=== PATIENT | female | born 1970 | race Caucasian/White ===

== ENCOUNTER 2020-04-17 07:13 | Outpatient (REF) | payer OTHER, SELFPAY ==
[2020-04-17 07:56] LABS: MANUAL DIFF FLAG NO
[2020-04-17 07:58] LABS: Basophils Percent Auto 0.6 % (0-2); Eosinophils Absolute Auto 0.3 X10*3/uL (0.0-0.4); Hematocrit 43.9 % (37-47); Hemoglobin 14.5 g/dl (12.0-16.0); Imm Gran Abs Auto 0.02 X10*3/uL (0.00-0.03); Imm Gran Pct Auto 0.3 % (0.0-0.4); Lymphocytes Absolute Auto 2.9 X10*3/uL (1.2-4.9); Lymphocytes Percent Auto 44.6 % (20-40); Mean Corpuscular Hemoglobin 29.5 pg (27.0-33.0); Mean Corpuscular Volume 89.4 fL (80-98); Mean Platelet Volume 9.6 fL (9.4-12.3); Monocytes Absolute Auto 0.6 X10*3/uL (0.1-1.2); Neutrophils Absolute Auto 2.5 X10*3/uL (2.0-8.3); Neutrophils Percent Auto 39.5 % (45-73); Platelet Count 367 X10*3/uL (160-400); Red Blood Count 4.91 X10*6/uL (4.20-5.50); Red Cell Distribution Width 12.2 % (11.0-16.0); White Blood Count 6.4 X10*3/uL (4.8-10.8)
[2020-04-17 08:05] LABS: Glucose Urine UA NEG (NEG); Leukocyte Esterase Urine 3+ (NEG); Nitrite Urine NEG (NEG); Specific Gravity - Urine 1.015 (1.005-1.025); Urine Blood NEG (NEG); Urine Ketones NEG (NEG); Urine Protein NEG (NEG-TRACE)
[2020-04-17 08:11] LABS: Appearance Urine HAZY; Color Urine YELLOW
[2020-04-17 08:18] LABS: Bacteria Urine 1+ /LPF; Mucus Urine 2+ /LPF; RBC Urine 0 /HPF (0); Squamous Epithelial Cell Urine 3+ /LPF
[2020-04-17 08:22] LABS: Alanine Aminotransferase 20 U/L (0-31); Albumin Level 4.8 g/dL (3.5-5.0); Alkaline Phosphatase 66 U/L (39-117); Anion Gap 13 (12-20); Aspartate Amino Transferase 35 U/L (5-31); Bilirubin Total 1.1 mg/dL (0.0-1.0); Blood Urea Nitrogen 13 mg/dL (9-16); Calcium 9.9 mg/dL (8.4-10.2); Carbon Dioxide 28 mmol/L (22-29); Chloride 100 mmol/L (96-108); Cholesterol 273 mg/dL; Estimated Glomerular Filt Rate > 60; Glucose Random 104 mg/dL (60-115); HDL Cholesterol 48 mg/dL; LDL Cholesterol Calculated 170 mg/dl; Potassium 4.7 mmol/l (3.3-5.1); Sodium 136 mmol/L (135-145); Total Protein 7.7 g/dL (6.5-8.0); Triglycerides 275 mg/dL
[2020-04-17 08:43] LABS: Free T4 (Free Thyroxine) 0.99 ng/dL (0.71-1.85); Thyroid Stimulating Hormone 2.56 mIU/mL (0.32-4.0)
[2020-04-17 10:33] LABS: Folate > 20.0 ng/mL (> or = 4.0); Vitamin B12 412 pg/mL (200-900)
== END 2020-04-17 07:14 | disposition home or self-care (01) ==
LOC: HO.LAB 07:13
PROVIDERS: Visit Provider Internal Medicine
DX: E78.00 Pure hypercholesterolemia, unspecified (principal); I10 Essential (primary) hypertension
CPT/HCPCS: 36415; 80053; 80061; 81001; 82607; 82746; 84439; 84443; 85025

== ENCOUNTER 2020-07-20 06:18 | Outpatient (REF) | payer OTHER, SELFPAY ==
[2020-07-20 07:23] LABS: Appearance Urine HAZY; Color Urine YELLOW; Glucose Urine UA NEG (NEG); Leukocyte Esterase Urine 1+ (NEG); Nitrite Urine NEG (NEG); Urine Blood NEG (NEG); Urine Ketones NEG (NEG); Urine Protein NEG (NEG-TRACE)
[2020-07-20 07:41] LABS: RBC Urine 0-2 /HPF (0)
[2020-07-20 07:42] LABS: Bacteria Urine TRACE /LPF; Squamous Epithelial Cell Urine 1+ /LPF
[2020-07-20 07:43] LABS: Alanine Aminotransferase 15 U/L (0-31); Albumin Level 4.8 g/dL (3.5-5.0); Alkaline Phosphatase 57 U/L (39-117); Anion Gap 15 (12-20); Aspartate Amino Transferase 24 U/L (5-31); Bilirubin Total 0.8 mg/dL (0.0-1.0); Blood Urea Nitrogen 12 mg/dL (9-16); Carbon Dioxide 25 mmol/L (22-29); Chloride 102 mmol/L (96-108); Cholesterol 276 mg/dL; Estimated Glomerular Filt Rate > 60; Glucose Random 99 mg/dL (60-115); HDL Cholesterol 52 mg/dL; LDL Cholesterol Calculated 182 mg/dl; Potassium 4.4 mmol/L (3.3-5.1); Sodium 138 mmol/L (135-145); Total Protein 7.7 g/dL (6.5-8.0); Triglycerides 212 mg/dL
== END 2020-07-20 06:19 | disposition home or self-care (01) ==
LOC: HO.LAB 06:18
PROVIDERS: Visit Provider Internal Medicine
DX: R73.01 Impaired fasting glucose (principal); E78.00 Pure hypercholesterolemia, unspecified
CPT/HCPCS: 36415; 80053; 80061; 81001

== ENCOUNTER 2020-08-21 15:52 | Outpatient (REF) | payer OTHER, SELFPAY ==
--- NOTE | ~2020-08-21 | US_ITS ---
EXAMINATION: US RETROPERITONEAL LIMITED (RENAL ONLY) CLINICAL INFORMATION: Hematuria. COMPARISON: None TECHNIQUE: Real-time imaging of the kidneys. FINDINGS: RIGHT KIDNEY: 10.9 x 5.1 x 5.2 cm (SAG x AP x TRV). The kidney is normal in size, contour, and echogenicity. Renal cortical thickness is normal. No calculi or focal parenchymal lesions. No hydronephrosis. An extrarenal kidney pelvis is seen. LEFT KIDNEY: 10.7 x 5.0 x 4.9 cm (SAG x AP x TRV). The kidney is normal in size, contour, and echogenicity. Renal cortical thickness is normal. No calculi or focal parenchymal lesions. No hydronephrosis. US/US renal BI IMPRESSION: Unremarkable renal ultrasound.
== END 2020-08-21 15:53 | disposition home or self-care (01) ==
LOC: HO.US 15:52
PROVIDERS: Visit Provider Internal Medicine
DX: R31.9 Hematuria, unspecified (principal)
CPT/HCPCS: 76775

== ENCOUNTER 2020-11-14 06:00 | Outpatient (REF) | payer OTHER, SELFPAY ==
[2020-11-14 07:25] LABS: Alanine Aminotransferase 16 U/L (0-31); Albumin Level 4.7 g/dL (3.5-5.0); Alkaline Phosphatase 60 U/L (39-117); Anion Gap 13 (12-20); Aspartate Amino Transferase 24 U/L (5-31); Bilirubin Total 0.9 mg/dL (0.0-1.0); Blood Urea Nitrogen 12 mg/dL (9-16); Carbon Dioxide 27 mmol/L (22-29); Chloride 104 mmol/L (96-108); Cholesterol 192 mg/dL; Estimated Glomerular Filt Rate > 60; Glucose Random 94 mg/dL (60-115); HDL Cholesterol 51 mg/dL; LDL Cholesterol Calculated 112 mg/dl; Potassium 4.5 mmol/L (3.3-5.1); Sodium 139 mmol/L (135-145); Total Protein 7.2 g/dL (6.5-8.0); Triglycerides 148 mg/dL
[2020-11-14 07:36] LABS: Estimated Average Glucose 114 mg/dL; Hemoglobin A1c % 5.6 %
[2020-11-14 07:42] LABS: Glucose Urine UA NEG (NEG); Leukocyte Esterase Urine NEG (NEG); Nitrite Urine NEG (NEG); Specific Gravity - Urine 1.015 (1.005-1.025); Urine Blood NEG (NEG); Urine Ketones NEG (NEG); Urine Protein NEG (NEG-TRACE)
[2020-11-14 07:46] LABS: Appearance Urine HAZY; Color Urine YELLOW
[2020-11-14 07:49] LABS: Bacteria Urine 1+ /LPF; RBC Urine 0-2 /HPF (0); Squamous Epithelial Cell Urine 3+ /LPF; WBC Urine 0-2 /HPF (0-4)
== END 2020-11-14 06:01 | disposition home or self-care (01) ==
LOC: HO.LAB 06:00
PROVIDERS: PCP Internal Medicine; Visit Provider Internal Medicine
DX: E78.00 Pure hypercholesterolemia, unspecified (principal); R73.01 Impaired fasting glucose
CPT/HCPCS: 36415; 80053; 80061; 81001; 83036

== ENCOUNTER 2021-12-10 06:13 | Outpatient (REF) | payer OTHER, SELFPAY ==
[2021-12-10 06:24] LABS: MANUAL DIFF FLAG NO
[2021-12-10 07:46] LABS: Basophils Absolute Auto 0.1 X10*3/uL (0.0-0.2); Basophils Percent Auto 0.6 % (0-2); Eosinophils Absolute Auto 0.4 X10*3/uL (0.0-0.4); Eosinophils Percent Auto 4.3 % (0-4); Hematocrit 42.4 % (37.0-47.0); Hemoglobin 14.2 g/dl (12.0-16.0); Imm Gran Abs Auto 0.05 X10*3/uL (0.00-0.03); Imm Gran Pct Auto 0.6 % (0.0-0.4); Lymphocytes Absolute Auto 3.6 X10*3/uL (1.2-4.9); Mean Corpuscular HGB Conc 33.5 g/dl (31.0-35.0); Mean Corpuscular Hemoglobin 29.5 pg (27.0-33.0); Mean Corpuscular Volume 88.1 fL (80.0-98.0); Mean Platelet Volume 10.3 fL (9.4-12.3); Monocytes Absolute Auto 0.8 X10*3/uL (0.1-1.2); Neutrophils Absolute Auto 3.7 x10*3/uL (2.0-8.3); Neutrophils Percent Auto 43.5 % (45-73); Platelet Count 365 X10*3/uL (160-400); Red Blood Count 4.81 X10*6/uL (4.20-5.50); Red Cell Distribution Width 12.6 % (11.0-16.0); White Blood Count 8.6 X10*3/uL (4.8-10.8)
[2021-12-10 08:04] LABS: Appearance Urine HAZY; Color Urine YELLOW; Glucose Urine UA NEG (NEG); Leukocyte Esterase Urine 2+ (NEG); Nitrite Urine NEG (NEG); Urine Blood TRACE (NEG); Urine Ketones NEG (NEG); Urine Protein NEG (NEG-TRACE)
[2021-12-10 08:21] LABS: Bacteria Urine 2+ /LPF; RBC Urine 0-2 /HPF (0); Squamous Epithelial Cell Urine 2+ /LPF
[2021-12-10 08:33] LABS: Alanine Aminotransferase 16 U/L (0-31); Albumin Level 4.6 g/dL (3.5-5.0); Alkaline Phosphatase 65 U/L (39-117); Anion Gap 16 (12-20); Aspartate Amino Transferase 28 U/L (5-31); Blood Urea Nitrogen 9 mg/dL (9-16); Calcium 9.7 mg/dL (8.4-10.2); Carbon Dioxide 24 mmol/L (22-29); Chloride 101 mmol/L (96-108); Cholesterol 214 mg/dL; Estimated Glomerular Filt Rate > 60; Glucose Random 89 mg/dL (60-115); HDL Cholesterol 51 mg/dL; LDL Cholesterol Calculated 113 mg/dl; Potassium 4.6 mmol/L (3.3-5.1); Sodium 136 mmol/L (135-145); Total Protein 7.3 g/dL (6.5-8.0); Triglycerides 252 mg/dL
[2021-12-10 08:37] LABS: Estimated Average Glucose 114 mg/dL; Hemoglobin A1c % 5.6 %
[2021-12-10 08:56] LABS: Free T4 (Free Thyroxine) 0.87 ng/dL (0.71-1.85); Thyroid Stimulating Hormone 4.63 uIU/mL (0.32-4.0); Vitamin D 25-OH Total 47.5 ng/mL (>30)
[2021-12-10 10:00] LABS: Folate > 20.0 ng/mL (> or = 4.0); Vitamin B12 311 pg/mL (200-900)
== END 2021-12-10 06:14 | disposition home or self-care (01) ==
LOC: HO.LAB 06:13
PROVIDERS: PCP Internal Medicine; Visit Provider Internal Medicine
DX: I10 Essential (primary) hypertension (principal); E78.00 Pure hypercholesterolemia, unspecified
CPT/HCPCS: 36415; 80053; 80061; 81001; 82306; 82607; 82746; 83036; 84439; 84443; 85025

== ENCOUNTER 2022-10-28 06:16 | Outpatient (REF) | payer OTHER, SELFPAY ==
[2022-10-28 06:24] LABS: MANUAL DIFF FLAG NO
[2022-10-28 07:45] LABS: Basophils Percent Auto 0.5 % (0-2); Eosinophils Absolute Auto 0.2 X10*3/uL (0.0-0.4); Eosinophils Percent Auto 2.2 % (0-4); Hematocrit 43.8 % (37.0-47.0); Hemoglobin 14.3 g/dl (12.0-16.0); Imm Gran Abs Auto 0.03 X10*3/uL (0.00-0.03); Imm Gran Pct Auto 0.4 % (0.0-0.4); Lymphocytes Absolute Auto 3.8 X10*3/uL (1.2-4.9); Mean Corpuscular HGB Conc 32.6 g/dl (31.0-35.0); Mean Corpuscular Hemoglobin 29.1 pg (27.0-33.0); Mean Platelet Volume 10.1 fL (9.4-12.3); Monocytes Absolute Auto 0.7 X10*3/uL (0.1-1.2); Monocytes Percent Auto 9.1 % (2-11); Neutrophils Absolute Auto 2.9 x10*3/uL (2.0-8.3); Neutrophils Percent Auto 37.8 % (45-73); Platelet Count 386 X10*3/uL (160-400); Red Blood Count 4.92 X10*6/uL (4.20-5.50); Red Cell Distribution Width 13.1 % (11.0-16.0); White Blood Count 7.6 X10*3/uL (4.8-10.8)
[2022-10-28 07:55] LABS: Estimated Average Glucose 105 mg/dL; Hemoglobin A1c % 5.3 %
[2022-10-28 08:16] LABS: Alanine Aminotransferase 20 U/L (0-31); Albumin Level 4.4 g/dL (3.5-5.0); Alkaline Phosphatase 58 U/L (39-117); Anion Gap 13 (12-20); Aspartate Amino Transferase 32 U/L (5-31); Bilirubin Total 1.1 mg/dL (0.0-1.0); Blood Urea Nitrogen 9 mg/dL (9-16); Calcium 9.9 mg/dL (8.4-10.2); Carbon Dioxide 25 mmol/L (22-29); Chloride 103 mmol/L (96-108); Cholesterol 216 mg/dL; Estimated Glomerular Filt Rate > 60; Glucose Random 90 mg/dL (60-115); HDL Cholesterol 56 mg/dL; LDL Cholesterol Calculated 117 mg/dl; Potassium 4.7 mmol/L (3.3-5.1); Sodium 136 mmol/L (135-145); Total Protein 6.9 g/dL (6.5-8.0); Triglycerides 218 mg/dL
[2022-10-28 08:49] LABS: Free T4 (Free Thyroxine) 0.79 ng/dL (0.71-1.85); Thyroid Stimulating Hormone 4.53 uIU/mL (0.32-4.0); Vitamin B12 349 pg/mL (200-900); Vitamin D 25-OH Total 41.1 ng/mL (>30)
== END 2022-10-28 06:17 | disposition home or self-care (01) ==
LOC: HO.LAB 06:16
PROVIDERS: PCP Internal Medicine; Visit Provider Internal Medicine
DX: E78.00 Pure hypercholesterolemia, unspecified (principal); R73.01 Impaired fasting glucose; E55.9 Vitamin D deficiency, unspecified
CPT/HCPCS: 36415; 80053; 80061; 82306; 82607; 82746; 83036; 84439; 84443; 85025

== ENCOUNTER 2023-10-29 06:08 | Outpatient (REF) | payer OTHER, SELFPAY ==
[2023-10-29 06:25] LABS: MANUAL DIFF FLAG NO
[2023-10-29 07:46] LABS: Basophils Absolute Auto 0.1 X10*3/uL (0.0-0.2); Basophils Percent Auto 0.9 % (0-2); Eosinophils Absolute Auto 0.5 X10*3/uL (0.0-0.4); Eosinophils Percent Auto 6.6 % (0-4); Hematocrit 41.1 % (37.0-47.0); Hemoglobin 13.6 g/dl (12.0-16.0); Imm Gran Abs Auto 0.03 X10*3/uL (0.00-0.03); Imm Gran Pct Auto 0.4 % (0.0-0.4); Lymphocytes Percent Auto 43.5 % (20-40); Mean Corpuscular HGB Conc 33.1 g/dl (31.0-35.0); Mean Corpuscular Hemoglobin 29.5 pg (27.0-33.0); Mean Corpuscular Volume 89.2 fL (80.0-98.0); Mean Platelet Volume 10.2 fL (9.4-12.3); Monocytes Absolute Auto 0.7 X10*3/uL (0.1-1.2); Monocytes Percent Auto 9.6 % (2-11); Neutrophils Absolute Auto 2.7 x10*3/uL (2.0-8.3); Platelet Count 376 X10*3/uL (160-400); Red Blood Count 4.61 X10*6/uL (4.20-5.50)
[2023-10-29 08:24] LABS: Alanine Aminotransferase 13 U/L (0-31); Albumin Level 4.4 g/dL (3.5-5.0); Alkaline Phosphatase 53 U/L (39-117); Anion Gap 13 (12-20); Aspartate Amino Transferase 27 U/L (5-31); Bilirubin Total 0.6 mg/dL (0.0-1.0); Blood Urea Nitrogen 12 mg/dL (9-16); Calcium 9.7 mg/dL (8.4-10.2); Carbon Dioxide 24 mmol/L (22-29); Chloride 102 mmol/L (96-108); Cholesterol 221 mg/dL (<200); Estimated Glomerular Filt Rate > 60; Glucose Random 94 mg/dL (60-115); HDL Cholesterol 54 mg/dL (>40); LDL Cholesterol Calculated 109 mg/dL (<100); Sodium 135 mmol/L (135-145); Total Protein 7.3 g/dL (6.5-8.0); Triglycerides 293 mg/dL (<150)
[2023-10-29 08:53] LABS: Free T4 (Free Thyroxine) 0.64 ng/dL (0.71-1.85); Vitamin D 25-OH Total 37.3 ng/mL (>30)
[2023-10-29 09:00] LABS: Folate 15.6 ng/mL (> or = 4.0); Vitamin B12 413 pg/mL (200-900)
== END 2023-10-29 06:09 | disposition home or self-care (01) ==
LOC: HO.LAB 06:08
PROVIDERS: PCP Internal Medicine; Visit Provider Internal Medicine
DX: E78.00 Pure hypercholesterolemia, unspecified (principal); R79.89 Other specified abnormal findings of blood chemistry
CPT/HCPCS: 36415; 80053; 80061; 82306; 82607; 82746; 84439; 84443; 85025

== ENCOUNTER 2023-11-03 16:06 | Outpatient (AMB) | payer OTHER, SELFPAY ==
[2023-11-03 16:09] VITALS: BP 126/74; PULSE 82; O2SAT 98; BMI 27.7
--- NOTE | 2023-11-03 16:09 | A.OFFPC_ITS ---
Vital Signs 11/03/23 16:09 Height 5 ft Weight 142 lb BMI 27.7 BP 126/74 Blood Pressure Location Lt brachial Position Sitting Pulse 82 Pulse Source Pulse Oximeter Pulse Oximetry (%) 98 Oxygen Delivery Method Room Air Intake Visit Reasons: Max TAPIA Senior Communications Specialist Required: No Cellophane Tester: Not Required per policy Accompanied by: Self / Same As Patient Allergies No Known Allergies [No Known Allergies*] Allergy (Verified 11/03/23 16:09) Medication List - Last Reconciled 11/03/23 by Aimee Perez MD acyclovir 5% (Zovirax) 1 appl topical 6XD 7 days lisinopril 5 mg PO DAILY multivitamin 1 tab PO DAILY simvastatin 5 mg PO BEDTIME valacyclovir 2,000 mg (2 x 1 gram) PO BID PRN Tobacco use date assessed: 11/03/23 Dental Screening Dental Screen Date: 11/03/23 Did you have a dental visit in the last 12 months?: Yes Did you have a dental problem in the last 6 months where you did not have access to dental care?: No Was dental information given to patient?: Patient has dentist HPI Annnjaguar TAPIA HPI Details 53-year-old overweight female with a his tory of hypertension h ypercholesterolemia impaired glucose tolerance last seen in October 2022. Patient is here for physical exam. Mammogram for my record July 2022 and Cologuard testing was done in October 2022. [facility] Medical History (Updated 10/31/22 @ 16:42 by Aimee Perez MD) Hypertension Hypercholesterolemia Surgical History (Updated 04/16/20 @ 09:00 by Aimee Perez MD) H/O abdominal surgery H/O reduction mammoplasty Family History (Updated 10/31/22 @ 16:27 by Aimee Perez MD) Maternal Grandfather No problems noted. Father Skin cancer Paternal Grandmother Myocardial infarct Social History (Updated 11/03/23 @ 16:55 by Aimee Perez MD) Housing: House Alcohol intake: current Alcohol intake frequency: holidays/special occasions only Comment: once a day Patient Tobacco Use Status: Never used Tobacco e-Cigarette/Vaping Use: Never Used Second Hand Smoke Exposure: No Current occupational status: employed Cognitive needs: No Hearing needs: No Vision needs: No Questionnaire PHQ-9 Over the last 2 weeks, how often have you been bothered by any of the following problems? 1. Little interest or pleasure in doing things: not at all 2. Feeling down, depressed, or hopeless: not at all 3. Trouble falling or staying asleep, or sleeping too much: not at all 4. Feeling tired or having little energy: not at all 5. Poor appetite or overeating: not at all 6. Feeling bad about yourself - or that you are a failure or have let yourself or your family down: not at all 7. Trouble concentrating on things, such as reading the newspaper or watching television: not at all 8. Moving or speaking so slowly that other people could have noticed. Or the opposite - being so fidgety or restless that you have been moving around a lot more than usual: not at all 9. Thoughts that you would be better off or of hurting yourself in some way: not at all Total score: 0 Depression Screening Interpretation: Negative Depression Screening Done: Yes Source: Developed by Drs. Ryan Georges, Enednia Renee, Juan Antonio Alexander and colleagues, with an educational lois from [employer]. Thrive Questionnaire Date Thrive assessed: 11/03/23 I am a: Patient What is your living situation today?: I have a steady place to live Within the past 12 months, did the food you bought not last and you didn't have the money to get more?: Never true Within the past 12 months, did you worry whether your food would run out before you got money to buy more?: Never true Do you have trouble paying for medicines?: No Do you have trouble getting transportation to medical appointments?: No Do you have trouble paying your heating and electricity bill?: No Do you have trouble taking care of your child, family member or friend?: No Do you have trouble with day-to-day activities such as bathing, preparing meals, shopping, managing finances, etc.?: No Are you currently unemployed and looking for a job?: No Are you interested in more education?: No Please select the resources that you would like help with: None THRIVE Score: 0 AUDIT C Alcohol Use Questionnaire (AUDIT-C) 1. How often do you have a drink containing alcohol?: 2-3 times a week 2. How many drinks containing alcohol do you have on a typical day when you are drinking?: 3 or 4 3. How often do you have six or more drinks on one occasion?: Never Total Score: 4 JENNIFER-7 AMB Questionnaire JENNIFER-7 Date JENNIFER - 7 assessed: 11/03/23 Feeling nervous, anxious, or on edge: 0 = Not at all Not being able to stop or control worryin = Not at all Worrying too much about different things: 0 = Not at all Trouble relaxin = Not at all Being so restless that it is hard to sit still: 0 = Not at all Becoming easily annoyed or irritable: 0 = Not at all Feeling afraid as if something awful might happen: 0 = Not at all Total JENNIFER-7 score (0-4 normal; 5-9 mild; 10-14 moderate; 15-21 severe): 0 Source: Developed by Drs. Ryan Georges, Enedina Renee, Juan Antonio Alexander and colleagues, with an educational lois from [employer]. Review of Systems Const Denies poor appetite and Denies weakness Eyes Denies no additional complaints ENT Reports Normal hearing present, Denies dizziness, Denies nasal congestion, Denies tinnitus and Denies sore throat Card Denies chest pain, Denies syncope, Denies rapid heart rate and Denies dyspnea Resp Denies cough and Denies dyspnea GI Denies change in stool character, Reports constipation, Denies diarrhea, Denies nausea and Denies vomiting Denies urinary frequency, Denies difficulty voiding and Denies dysuria Neuro Reports Normal hearing present, Denies confusion, Denies dizziness, Denies sy ncope and Denies weakness Psych Denies confusion Physical exam (Primary Care) Vital Signs: Last Vital Signs Pulse 82 11/03/23 16:09 BP 126/74 11/03/23 16:09 Pulse Ox 98 11/03/23 16:09 Oxygen Delivery Method Room Air 11/03/23 16:09 BMI result Body Mass Index 27.7 Tobacco/Smoking Status: Tobacco use Status Tobacco use date assessed 11/03/23 11/03/23 16:10 Patient Tobacco Use Status Never used Tobacco 11/03/23 16:10 e-Cigarette/Vaping Use Never Used 11/03/23 16:10 PHQ-9: PHQ-9 Score PHQ-9: Total score 0 11/03/23 16:10 Depression Screening Interpretation: Negative Thrive Assessment: Date of Thrive Assessment Date Thrive assessed 11/03/23 11/03/23 16:10 Const General: No confusion Orientation/consciousness: No confusion HENMT Head: Yes normocephalic Ears: external ears normal and TM's normal bilaterally Face and sinus: Yes normal facial exam Mouth: moist mucous membranes Throat: Yes tonsils normal Eyes Conjunctivae: conjunctivae normal Pupils: Equal, round and reactive pupils present and Pupil accommodation reflex normal Direct Ophthalmoscopy: normal light reflex Neck Neck: No lymphadenopathy Thyroid: Thyroid normal Chest Chest palpation & inspection: normal inspection of the chest Resp Effort & Inspection: normal respiratory effort and no audible wheezes Auscultation: clear to auscultation bilaterally, no crackles, no wheezes and lung sounds not diminished Cardio Rate: regular rate Rhythm: regular rhythm Peripheral pulses: radial pulses present and dorsalis pedis present GI Palpation (GI): no masses Auscultation: normal bowel sounds and normoactive bowel sounds Rectal Exam - Female: deferred Skin General skin exam: no rashes or lesions noted Rashes: no rashes Neuro General: No confusion Cranial nerves: Yes Equal, round and reactive pupils present and Yes Normal hearing present Cognition (Neuro): normal cognition Gait exam (Neuro): Normal gait present Motor exam (neuro): 5/5 motor strength present throughout Deep tendon reflexes (DTR's): Right brachioradialis reflex intensity grade: 2+, Left brachioradialis reflex intensity grade: 2+, Right patellar reflex intensity grade: 2+ and Left patellar reflex intensity grade: 2+ Extrem General: No edema Assessment and Plan Assessment & Plan (1) Annual physical exam: Code(s): Z00.00 - Encounter for general adult medical examination without abnormal findings (2) Hypercholesterolemia: Code(s): E78.00 - Pure hypercholesterolemia, unspecified Plan: Avoid fried foods, chicken skin, eggs, butter margarine, pastries and meat. Be it pork or beef they have a lot of cholesterol LDL goal of less than 130 and triglyceride of less than 150 (3) Hypertension: Code(s): I10 - Essential (primary) hypertension Qualifiers: Hypertension type: essential hypertension Qualified Code(s): I10 - Essential (primary) hypertension Plan: Continue with blood pressure medication. Decrease salt intake and exercise on lisinopril 5 mg once a day (4) Breast cancer screening by mammogram: Code(s): Z12.31 - Encounter for screening mammogram for malignant neoplasm of breast Orders: Orders Complete Blood Count Auto Diff Today R73.01 - Impaired fasting glucose Free T4 (Free Thyroxine) Today R73.01 - Impaired fasting glucose Hemoglobin A1c Today R73.01 - Impaired fasting glucose Lipid Panel Today E78.00 - Pure hypercholesterolemia, unspecified, R73.01 - Impaired fasting glucose Comprehensive Met. 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
== END 2023-11-03 17:24 | disposition home or self-care (01) ==
PROVIDERS: PCP Internal Medicine; Visit Provider Internal Medicine
DX: Z00.00 Encounter for general adult medical examination without abnormal findings (principal); E78.00 Pure hypercholesterolemia, unspecified; I10 Essential (primary) hypertension; Z12.31 Encounter for screening mammogram for malignant neoplasm of breast
CPT/HCPCS: 99396

== ENCOUNTER 2024-08-31 13:47 | Outpatient (REF) | payer OTHER, SELFPAY ==
--- NOTE | ~2024-08-31 | MM_ITS ---
EXAMINATION: DXA BONE DENSITY AXIAL HISTORY: Estrogen deficiency TECHNIQUE: [employer] Dual energy absorptiometry (DEXA) of the lumbar spine, total left hip, and femoral neck was performed. COMPARISON: Comparison is made with the prior examination dated 06/14/2007. FINDINGS: The bone mineral density of the lumbar spine is 1.281 with a T-score of 0.8, and a Z-score of 1.5. This is indicative of normal bone mineral density. This represents a BMD change of -2.0% compared to the prior exam. This is not statistically significant. The bone mineral density of the left total hip is 1.159 with a T-score of 1.2, and a Z-score of 1.8. This is indicative of normal bone mineral density. This represents a BMD change of -2.6% compared to the prior exam. This is not statistically significant. The bone mineral density of the left femoral neck is 1.048 with a T-score of 0.1, and a Z-score of 1.0. This is indicative of normal bone mineral density. This represents a BMD change of -4.2% compared to the prior exam. MM/XR DEXA axial skeleton IMPRESSION: Based on bone mineral density, and according to World Health Organization (WHO) criteria, the diagnosis is consistent with normal bone mineral density. All bone density values are in grams per centimeter squared (g/cm2). Statistically, 68% of repeat scans fall within 1 SD (+/- 0.010 g/cm2 for AP spine L1-L4) and 1 SD (+/- 0.012 g/cm2 for femur total) FRAX is a trademark of the [employer]'s [employer] [facility] Met[employer] Disease, a World Health Organization (WHO) Collaborating Center. Electronically signed by: Ryan Lawton MD 08/31/2024 03:15 PM EDT
--- OUTSIDE RECORDS SUMMARY | 2024-08-31 16:13 | XMS_ITS | Continuity of Care Document ---
Author Organization [facility] n[facility] Address [address], [address] [place] [address]- Care Team Providers Care Controls Project Engineer Name Role Phone Aimee Perez MD [facility] Phys[id number] Date[facility]s): 07/12/24 - 08/11/24 [facility] [employer] [facility] [address] [place] [address]- Encounter Type: Triage Allergies, Adverse Reactions, Alerts No Known Allergies Medications Combipatch 0.05 mg-0.14 mg/24 hours transdermal film, extended release 1 patch, Topically, Every Thursday and Thursday, rotate patch site, # 26 patch, 0 Refills, Maintenance, 01/15/24 5:19:00 PM EDT, [facility], Partial fill upon patient request if the prescription is for a schedule II opioid drug., 1 patch Topically Every Thursday and Thursday,Instr:rotate patch site, 154.94, cm, 05/29/22 13:03:00 EST, Height, 62.5, kg, 03/10/22 9:05:00 EDT, Dry Weight Start Date: 01/15/24 Status: Ordered Quantity: 26.0 Unit: patch Repeat number: 1 lisinopril 5 mg oral tablet 5 mg, 1, tablet, By Mouth, Daily, Refills 0, Maintenance, 10/21/18 4:20:39 PM EDT Start Date: 10/21/18 Status: Ordered Repeat number: 1 Mimvey 1 mg-0.5 mg oral tablet 1 tablet, By Mouth, Daily, # 30 tablet, 0 Refills, Maintenance, 01/26/24 12:58:00 PM EDT, [facility], Partial fill upon patient request if the prescription is for a schedule II opioid drug., 1 tablet By Mouth Daily, 154.94, cm, 05/29/22 13:03:00 EST, Height, 62.5, kg, 03/10/22 9:05:00 EDT, Dry Weight Start Date: 01/26/24 Status: Ordered Quantity: 30.0 Unit: tablet Repeat number: 1 Multivitamin By Mouth, Daily, 0 Refills, Maintenance, 10/09/10 2:52:40 PM EDT Start Date: 10/09/10 Status: Ordered Repeat number: 1 norethindrone 0.35 mg oral tablet 1 tablet = 0.35 mg, By Mouth, Daily, # 84 tablet, 0 Refills, Maintenance, 01/25/24 8:27:00 AM EDT, Tablet, [facility], Partial fill upon patient request if the prescription is for a schedule II opioid drug., 154.94, cm, 05/29/22 13:03:00 EST, Height, 62.5, kg, 03/10/22 9:05:00 EDT,Dry Weight Start Date: 01/25/24 Status: Ordered Quantity: 84.0 Unit: tablet Repeat number: 1 Simvastatin By Mouth, 0 Refills, Maintenance, 02/26/22 3:21:00 PM EDT, Partial fill upon patient request if the prescription is for a schedule II opioid drug. Start Date: 02/26/22 Status: Ordered Repeat number: 1 Problem List Condition Confirmation Course Effective Dates Status H ealth Status Informant Abnormal uterine bleeding Confirmed Active Cervical dysplasia Confirmed Active Fibroid uterus Confirmed Active Well woman exam Confirmed Active Perimenopausal Confirmed Active Social History Social History Type Response Smoking Status Never (less than 100 in lifetime) entered on: 02/26/22 Sex Sex Representation Female (finding) Patient Care team information Care Team Personnel Name: Aimee Perez MD Position: Reference Physician Member Role: PCP Address: [address] [place] [address]- Telecom: Care Team Related Persons Name: CASPER ROGERS Insurance Providers Guarantor name: SRIDHAR ROGERS [facility] Plan Information #: 1 Payer: [facility] NON P HMO Member Number: NA Policy Number: NA Group Number: NA
--- OUTSIDE RECORDS SUMMARY | 2024-08-31 16:13 | XMS_ITS | Continuity of Care Document ---
Author Organization [facility] Address [address], [address] [place] [address]- Care Team Providers Care Apprentice Painter Hand Name Role Phone Aimee Perez MD [id number] Date[facility]08[facility] - 08/07/[facility] [employer] [facility] [address] [place] [address]- Encounter Type: Triage Allergies, Adverse Reactions, Alerts [...] Position: Reference Physician Member Role: PCP Address: [address] [place] [address]- Telecom: Care Team Related Persons Name: CASPER ROGERS Insurance Providers Guarantor name: SRIDHAR ROGERS [facility] Plan Information #: 1 Payer: [facility] FF NON P HMO Member Number: NA Policy Number: NA Group Number: NA
== END 2024-08-31 13:48 | disposition home or self-care (01) ==
LOC: HO.MAMMO 13:47
PROVIDERS: PCP Internal Medicine; Visit Provider Internal Medicine
DX: M81.0 Age-related osteoporosis without current pathological fracture (principal)
CPT/HCPCS: 77080

== ENCOUNTER → 2024-08-31 14:30 | Outpatient (BNV) | payer OTHER, SELFPAY | PROVIDERS: PCP Internal Medicine; Visit Provider Radiology Diagnostic Radiology | DX: E28.39 Other primary ovarian failure (principal) | CPT/HCPCS: 77080 ==

== ENCOUNTER 2025-01-26 06:11 | Outpatient (REF) | payer OTHER, SELFPAY ==
--- OUTSIDE RECORDS SUMMARY | 2025-01-26 06:13 | XMS_ITS | Patient Health Record ---
Author Organization [facility] Address [address] [place] [address] Care Team Providers Care Machine Compositor Name Role Phone Winter(inactive) Aidan BARRETT Primary Care Provider U Ryan Jackson Unavailable [phone] Reason For Referral No Information Problems Problem Type SNOMED Code ICD Code Onset Dates Problem Status W/U Status Risk Notes Problem Dysphagia (16826676) Dysphagia (787.20) Active confirmed Plan Of Treatment Future Test Test Name Order Date UPPER GI ENDOSCOPY [place] DILATION OF ESOPH 11/17/2014 Insurance Providers Payer Name Payer Address Payer Phone Subscriber Number Group Number Insured Name Patient Relationship to Insured Coverage Start Date Coverage End Date [facility] [address] [place] [phone] [id number] SRIDHAR ROGERS Self - patient is the insured Medical (General) History Medical History History ICD Code [id number]--moderate sized hiatal hernia and changes of mild reflux--there was no stricture nor definitive esophageal ring, but the gastroesophageal junction was dilated with an 18 mm balloon with some effect noted at that time--biopsies from the gastroesophageal junction were negative Narvaez's esophagus. She was treated with a course of pantoprazole and her dysphagia improved at that time. Denies MO,DM,CVA,Lung disease,renal dise ase Surgical History Surgery Date(Month/Year) breast reduction surgery
[2025-01-26 06:35] LABS: MANUAL DIFF FLAG NO
[2025-01-26 07:32] LABS: Hematocrit 42.2 % (37.0-47.0); Hemoglobin 14.4 g/dl (12.0-16.0); Imm Gran Abs Auto 0.04 X10*3/uL (0.00-0.03); Imm Gran Pct Auto 0.5 % (0.0-0.4); Lymphocytes Absolute Auto 2.9 X10*3/uL (1.2-4.9); Mean Corpuscular HGB Conc 34.1 g/dl (31.0-35.0); Mean Corpuscular Hemoglobin 29.9 pg (27.0-33.0); Mean Corpuscular Volume 87.7 fL (80.0-98.0); NRBC Abs Auto 0.000 X10*3/uL (0.0-0.012); NRBC Pct Auto 0.0 /100WBC (0.0-0.2); Platelet Count 360 X10*3/uL (160-400); Red Blood Count 4.81 X10*6/uL (4.20-5.50); White Blood Count 8.0 X10*3/uL (4.8-10.8)
[2025-01-26 07:55] LABS: Hemoglobin A1C 144.3749 umol/L; Total Hemoglobin (HGBA1C) 3796.4629 umol/L
[2025-01-26 08:31] LABS: Alanine Aminotransferase 15 U/L (0-31); Albumin Level 4.7 g/dL (3.5-5.0); Alkaline Phosphatase 58 U/L (39-117); Anion Gap 13 (12-20); Aspartate Amino Transferase 27 U/L (5-31); Blood Urea Nitrogen 10 mg/dL (9-16); Calcium 9.6 mg/dL (8.4-10.2); Carbon Dioxide 27 mmol/L (22-29); Chloride 102 mmol/L (96-108); Cholesterol 180 mg/dL (<200); Estimated Glomerular Filt Rate > 60; HDL Cholesterol 43 mg/dL (>40); Potassium 4.2 mmol/L (3.3-5.1); Sodium 138 mmol/L (135-145); Total Protein 7.3 g/dL (6.5-8.0); Triglycerides 173 mg/dL (<150)
[2025-01-26 08:38] LABS: Free T4 (Free Thyroxine) 0.74 ng/dL (0.71-1.85); Thyroid Stimulating Hormone 3.10 uIU/mL (0.32-4.0)
[2025-01-26 08:54] LABS: Folate 15.7 ng/mL (> or = 4.0); Vitamin B12 584 pg/mL (200-900)
== END 2025-01-26 06:12 | disposition home or self-care (01) ==
LOC: HO.LAB 06:11
PROVIDERS: PCP Internal Medicine; Visit Provider Internal Medicine
DX: R73.01 Impaired fasting glucose (principal); E78.00 Pure hypercholesterolemia, unspecified
CPT/HCPCS: 36415; 80053; 80061; 82306; 82607; 82746; 83036; 84439; 84443; 85025

== ENCOUNTER 2025-02-06 16:20 | Outpatient (AMB) | payer OTHER, SELFPAY ==
--- NOTE | 2025-02-06 16:33 | A.OFFPC_ITS ---
Vital Signs 02/06/25 16:35 Height 5 ft Weight 141 lb BMI 27.5 BP 120/72 Blood Pressure Location Lt brachial Position Sitting Pulse 62 Pulse Source Pulse Oximeter Temp 97.1 F Temp Source Temporal Artery Scan Pulse Oximetry (%) 98 Oxygen Delivery Method Room Air Intake Visit Reasons: PE Intake Note: Patient is here today for a physical. Duct Layer Supervisor Required: No Nurse Informatics Educator: Not Required per policy Accompanied by: Self / Same As Patient Allergies lisinopril Adverse Reaction (Intermediate, Verified 02/06/25 16:35) cough Medication List - Last Reconciled 02/06/25 by Aimee Perez MD acyclovir 5% (Zovirax) 1 appl topical 6XD 7 days losartan 25 mg PO DAILY multivitamin 1 tab PO DAILY simvastatin 5 mg PO BEDTIME valacyclovir 2,000 mg (2 x 1 gram) PO BID PRN Tobacco use date assessed: 02/06/25 Dental Screening Dental Screen Date: 02/06/25 Did you have a dental visit in the last 12 months?: Yes Did you have a dental problem in the last 6 months where you did not have access to dental care?: No Was dental information given to patient?: Patient has dentist [facility] Medical History (Updated 02/06/25 @ 17:21 by Aimee Perez MD) Screening for osteoporosis Hypertension Hypercholesterolemia Surgical History H/O abdominal surgery H/O reduction mammoplasty Family History (Updated 02/06/25 @ 17:24 by Aimee Perez MD) Maternal Grandfather No problems noted. Father Skin cancer Paternal Grandmother Myocardial infarct Maternal Aunt Myocardial infarct Social History (Updated 02/06/25 @ 17:25 by Aimee Perez MD) Housing: House Alcohol intake: current Alcohol intake frequency: holidays/special occasions only Comment: 1 day week 4-5 Patient Tobacco Use Status: Never used Tobacco e-Cigarette/Vaping Use: Never Used Second Hand Smoke Exposure: No service: No Current occupational status: employed Cognitive needs: No Hearing needs: No Vision needs: No Questionnaire PHQ-9 Over the last 2 weeks, how often have you been bothered by any of the following problems? 1. Little interest or pleasure in doing things: not at all 2. Feeling down, depressed, or hopeless: not at all 3. Trouble falling or staying asleep, or sleeping too much: not at all 4. Feeling tired or having little energy: not at all 5. Poor appetite or overeating: not at all 6. Feeling bad about yourself - or that you are a failure or have let yourself or your family down: not at all 7. Trouble concentrating on things, such as reading the newspaper or watching television: not at all 8. Moving or speaking so slowly that other people could have noticed. Or the opposite - being so fidgety or restless that you have been moving around a lot more than usual: not at all 9. Thoughts that you would be better off or of hurting yourself in some way: not at all Total score: 0 Depression Screening Interpretation: Negative Depression Screening Done: Yes Source: Developed by Drs. Ryan Georges, Enedina Renee, Juan Antonio Alexander and colleagues, with an educational lois from [employer]. Thrive Questionnaire Date Thrive assessed: 02/06/25 I am a: Patient What is your living situation today?: I have a steady place to live Within the past 12 months, did the food you bought not last and you didn't have the money to get more?: Never true Within the past 12 months, did you worry whether your food would run out before you got money to buy more?: Never true Do you have trouble paying for medicines?: No Do you have trouble getting transportation to medical appointments?: No Do you have trouble paying your heating and electricity bill?: No Do you have trouble taking care of your child, family member or friend?: No Do you have trouble with day-to-day activities such as bathing, preparing meals, shopping, managing finances, etc.?: No Are you currently unemployed and looking for a job?: No Are you interested in more education?: No Please select the resources that you would like help with: None Currently or been in a relationship where the following occur: No concerns reported THRIVE Score: 0 AUDIT C Alcohol Use Questionnaire (AUDIT-C) 1. How often do you have a drink containing alcohol?: 2-3 times a week 2. How many drinks containing alcohol do you have on a typical day when you are drinking?: 1 or 2 3. How often do you have six or more drinks on one occasion?: Never Total Score: 3 JENNIFER-7 AMB Questionnaire JENNIFER-7 Date JENNIFER - 7 assessed: 02/06/25 Feeling nervous, anxious, or on edge: 0 = Not at all Not being able to stop or control worryin = Not at all Worrying too much about different things: 0 = Not at all Trouble relaxin = Not at all Being so restless that it is hard to sit still: 0 = Not at all Becoming easily annoyed or irritable: 0 = Not at all Feeling afraid as if something awful might happen: 0 = Not at all Total JENNIFER-7 score (0-4 normal; 5-9 mild; 10-14 moderate; 15-21 severe): 0 Source: Developed by Drs. Ryan Georges, Enedina Renee, Juan Antonio Alexander and colleagues, with an educational lois from [employer]. Review of Systems Const Denies poor appetite and Denies weakness Eyes Denies no additional complaints ENT Reports Normal hearing present, Denies dizziness, Denies nasal congestion, Denies tinnitus and Denies sore throat Card Denies chest pain, Denies syncope, Denies rapid heart rate and Denies dyspnea Resp Denies cough and Denies dyspnea GI Denies change in stool character, Reports constipation, Denies diarrhea, Denies nausea and Denies vomiting Denies urinary frequency, Denies difficulty voiding and Denies dysuria Neuro Reports Normal hearing present, Denies confusion, Denies dizziness, Denies syncope and Denies weakness Psych Denies confusion Physical exam (Primary Care) Vital Signs: Last Vital Signs Temp 97.1 F 02/06/25 16:35 Pulse 62 02/06/25 16:35 BP 120/72 02/06/25 16:35 Pulse Ox 98 02/06/25 16:35 Oxygen Delivery Method Room Air 02/06/25 16:35 BMI result Body Mass Index 27.5 Tobacco/Smoking Status: Tobacco use Status Tobacco use date assessed 02/06/25 02/06/25 16:36 Patient Tobacco Use Status Never used Tobacco 02/06/25 16:33 e-Cigarette/Vaping Use Never Used 02/06/25 16:33 PHQ-9: PHQ-9 Score PHQ-9: Total score 0 02/06/25 16:36 Depression Screening Interpretation: Negative Thrive Assessment: Date of Thrive Assessment Date Thrive assessed 02/06/25 02/06/25 16:36 Currently or been in a relationship where the following occur: No concerns reported Const General: No confusion Orientation/consciousness: No confusion HENMT Head: Yes normocephalic Ears: external ears normal and TM's normal bilaterally Face and sinus: Yes normal facial exam Mouth: moist mucous membranes Throat: Yes tonsils normal Eyes Conjunctivae: conjunctivae normal Pupils: Equal, round and reactive pupils present and Pupil accommodation reflex normal Direct Ophthalmoscopy: normal light reflex Neck Neck: No lymphadenopathy Thyroid: Thyroid normal Chest Chest palpation & inspection: normal inspection of the chest Resp Effort & Inspection: normal respiratory effort and no audible wheezes Auscultation: clear to auscultation bilaterally, no crackles, no wheezes and lung sounds not diminished Cardio Rate: regular rate Rhythm: regular rhythm Peripheral pulses: radial pulses present and dorsalis pedis present GI Palpation (GI): no masses Auscultation: normal bowel sounds and normoactive bowel sounds Rectal Exam - Female: deferred Skin General skin exam: no rashes or lesions noted Rashes: no rashes Neuro General: No confusion Cranial nerves: Yes Equal, round and reactive pupils present and Yes Normal hearing present Cognition (Neuro): normal cognition Gait exam (Neuro): Normal gait present Motor exam (neuro): 5/5 motor strength present throughout Deep tendon reflexes (DTR's): Right brachioradialis reflex intensity grade: 2+, Left brachioradialis reflex intensity grade: 2+, Right patellar reflex intensity grade: 2+ and Left patellar reflex intensity grade: 2+ Extrem General: No edema Coding Level of Care Code Est Pt Prev Care 40-64y(34130) Diagnoses Annual physical exam Z00.00 Impaired fasting glucose R73.01 Hypercholesterolemia E78.00 Essential hypertension I10 Hypertension type: essential hypertension Assessment & Plan Assessment & Plan (1) Annual physical exam: Code(s): Z00.00 - Encounter for general adult medical examination without abnormal findings Category: Medical Plan: Patient is advised to eat healthy, keep well hydrated, keep active and have adequate sleep. (2) Impaired fasting glucose: Code(s): R73.01 - Impaired fasting glucose Category: Medical Plan: Decrease the amount of carbohydrate intake, pasta, bread, rice and potatoes are all sugar and that is aside from all the sweet stuff, remember that fruits are good but they are Sweet also. (3) Hypercholesterolemia: Code(s): E78.00 - Pure hypercholesterolemia, unspecified Category: Medical Plan: Avoid fried foods, chicken skin, eggs, butter margarine, pastries and meat. Be it pork or beef they have a lot of cholesterol LDL goal of less than 130 and triglyceride of less than 150 patient is simvastatin 5 mg once a day. Patient had a coronary artery calcium scoring low risk 15.5 (4) Hypertension: Code(s): I10 - Essential (primary) hypertension Category: Medical Qualifiers: Hypertension type: essential hypertension Qualified Code(s): I10 - Essential (primary) hypertension Plan: Continue with blood pressure medication. Decrease salt intake and exercise on losartan 25 mg once a day Plan History of Present Illness The patient is a 54-year-old female presenting for a physical examination and management of chronic conditions. She has a history of hypertension and hypercholesterolemia, which have been managed with medication. Her blood pressure is controlled with losartan 25 mg once daily, and she is on simvastatin 5 mg daily for cholesterol management. The patient also has glucose intolerance, with a recent A1c of 5.6, indicating good control. She maintains normal blood sugar levels and has no anemia or e lectrolyte imbalances. Preventative care measures include a negative Cologuard test in October 2022 and a normal bone density scan in August 2024. Her coronary artery calcium score is 15.5, indicating low cardiovascular risk. Health Maintenance - Colon cancer screening with stool test: Negative Cologuard test in October 2022 - Bone density screening: Normal results in August 2024 - Cardiovascular risk assessment: Coronary artery calcium score of 15.5 indicating low risk Social History Review of Systems Physical Exam General: Cooperative, healthy appearing, comfortable, no acute distress and well developed Orientation: Patient oriented x3 Limitations: No limitations Head: Normal to inspection Ears: Hearing grossly normal bilaterally Nose: Normal external nose present Face and sinus: Normal facial exam Eyes: Appearance normal, both eyes and all related structures Neck: Normal visual inspection and Yes full ROM Respiratory: Normal respiratory effort and able to speak in complete sentences. Clear to auscultation bilaterally Cardiovascular: Regular rate and rhythm. Normal S1 and S2 GI: Normal to inspection. Soft to palpation and nontender Skin: No rashes or lesions noted Neuro: Patient oriented x3 Extremities: Normal to inspection Results - Labs: Normal blood count, normal electrolytes, normal renal function, normal blood sugar, A1c 5.6, normal liver function, cholesterol elevated with triglycerides at 173 mg/dL - Imaging: Coronary artery calcium score of 15.5, indicating low cardiovascular risk - Screening: Negative Cologuard test in October 2022, normal bone density scan in August 2024 Plan Patient was informed and verbally consented to the use of an ambient scribe for clinic note documentation during this visit. 1. Essential Hypertension The patient's hypertension is managed with losartan 25 mg once daily, which has effectively controlled her blood pressure. 2. Hypercholesterolemia The patient is on simvastatin 5 mg daily to manage her cholesterol levels, with a goal of maintaining LDL cholesterol below 130 mg/dL and triglycerides below 150 mg/dL. 3. Glucose Intolerance The patient's glucose intolerance is monitored with regular blood sugar checks and an A1c of 5.6, indicating good control. 4. Preventative Care Preventative care includes a negative Cologuard test in October 2022 and a normal bone density scan in August 2024, with a coronary artery calcium score of 15.5 indicating low cardiovascular risk. Discussion Notes Patient Instructions Orders: Orders Complete Blood Count Auto Diff 1 Year R73.01 - Impaired fasting glucose Vitamin B12 and Folate 1 Year R73.01 - Impaired fasting glucose Vitamin D 25-OH Total 1 Year R73.01 - Impaired fasting glucose Thyroid Stimulating Hormone 1 Year R73.01 - Impaired fasting glucose Comprehensive Met. Panel 1 Year R73.01 - Impaired fasting glucose Free T4 (Free Thyroxine) 1 Year R73.01 - Impaired fasting glucose Hemoglobin A1c 1 Year R73.01 - Impaired fasting glucose Lipid Panel 1 Year E78.00 - Pure hypercholesterolemia, unspecified, R73.01 - Impaired fasting glucose Medications: Refilled losartan 25 mg PO DAILY 90 tabs 2RF I10 - Essential (primary) hypertension
[2025-02-06 16:35] VITALS: BP 120/72; PULSE 62; TEMP 36.2; O2SAT 98; BMI 27.5
--- OUTSIDE RECORDS SUMMARY | 2025-02-06 18:05 | XMS_ITS | Patient Health Record ---
Author Organization [facility] Address [address] [place] [address] Care Team Providers Care Fire Lieutenant Name Role Phone Winter(inactive) Aidan BARRETT Primary Care Provider U Ryan Jackson Unavailable [phone] Reason For Referral No Information Problems Problem Type SNOMED Code ICD Code Onset Dates Problem Status W/U Status Risk Notes Problem Dysphagia (787.20) Active confirmed Plan Of Treatment Future Test Test Name Order Date UPPER GI ENDOSCOPY [place] DILATION OF ESOPH 11/17/2014 Insurance Providers Payer Name Payer Address Payer Phone Subscriber Number Group Number Insured Name Patient Relationship to Insured Coverage Start Date Coverage End Date [facility] [address] [place] [phone] [id number] ROGERS Self - patient is the insured Medical (General) History Medical History History ICD Code [id number]--moderate sized hiatal hernia and changes of mild reflux--there was no stricture nor definitive esophageal ring, but the gastroesophageal junction was dilated with an 18 mm balloon with some effect noted at that time--biopsies from the gastroesophageal junction were negative Narvaez's esophagus. She was treated with a course of pantoprazole and her dysphagia improved at that time. Denies [place],DM,CVA,Lung disease,renal dise ase Surgical History Surgery Date(Month/Year) breast reduction surgery
== END 2025-02-06 17:37 | disposition home or self-care (01) ==
LOC: HO.HMCH 16:21
PROVIDERS: PCP Internal Medicine; Visit Provider Internal Medicine
DX: Z00.00 Encounter for general adult medical examination without abnormal findings (principal); R73.01 Impaired fasting glucose; E78.00 Pure hypercholesterolemia, unspecified; I10 Essential (primary) hypertension